=== PATIENT | female | born 1965 | race African-American/Black ===

== ENCOUNTER 2021-05-31 20:33 | Emergency (ER) | payer OTHER, SELFPAY ==
--- NOTE | ~2021-05-31 | XR_ITS ---
EXAMINATION: XR chest 1V portable EXAM DATE: 05/31/2021 21:22 INDICATION: Chest pain, COVID+, cough and shortness of breath. TECHNIQUE: Portable AP frontal chest x-ray was obtained. There is no prior study for comparison. FINDINGS: Moderate amount of patchy bilateral ill-defined airspace disease probably COVID pneumonia g iven history provided above. No pneumothorax or pleural effusion. Cardiomediastinal silhouette is nor mal. There are no osseous abnormalities identified. There are no osseous abnormalities identified. IMPRESSION: Moderate amount of airspace disease probably COVID pneumonia. Reviewed, dictated and finalized at location A.
[2021-05-31 20:39] VITALS: BP 164/78; PULSE 86; RESP 16; TEMP 36.8; O2SAT 96
--- NOTE | 2021-05-31 20:39 | ECG_ITS ---
Measurements Intervals [place] Rate: 80 P: 38 UT: 127 QRS: -6 QRSD: 98 T: 40 QT: 359 QTc: 415 Interpretive Statements SINUS RHYTHM POSSIBLE LEFT ATRIAL ENLARGEMENT DELAYED PRECORDIAL R/S TRANSITION BORDERLINE ECG Electronically Signed On 06-01-2021 6:30:11 CDT by David Carter D.O.
[2021-05-31 20:54] LABS: Basophils Percent Auto 0.2 % (0.2-1.2); Hemoglobin 14.2 g/dL (12.0-15.0); Immature Granulocyte Absolute 0.02 K/mm3 (0.00-0.031); Immature Granulocyte Percent A 0.4 % (0-0.5); Lymphocytes Absolute Auto 1.48 K/mm3 (0.9-3.2); Lymphocytes Percent Auto 30.8 % (18.3-44.2); Mean Corpuscular HGB Conc 31.6 g/dl (32-36); Mean Corpuscular Hemoglobin 27.8 pg (26-34); Mean Corpuscular Volume 88.2 fl (80-100); Mean Platelet Volume 10.6 fl (7.4-10.4); Monocytes Absolute Auto 0.3 K/mm3 (0.1-0.6); Neutrophils Percent Auto 62.6 % (45.5-73.1); Platelet Count Result 153 k/mm3 (150-375); Red Cell Distribution Width 12.9 % (11.5-14.5); White Blood Count 4.8 K/mm3 (4.5-10.0)
[2021-05-31 21:03] LABS: Anion Gap 10 mmol/L (8-16); Blood Urea Nitrogen 13 mg/dL (7-17); Calcium 9.2 mg/dL (8.4-10.2); Carbon Dioxide 26 mmol/L (22-30); Chloride 102 mmol/L (98-107); Estimated Glomerular Filt Rate 57; Glucose 115 mg/dL (65-105); Potassium 3.6 mmol/L (3.4-5.0); Sodium 138 mmol/L (137-145)
[2021-05-31 21:04] LABS: Prothrombin Time 13.3 Seconds (11.1-14.7)
[2021-05-31 21:06] LABS: Partial Thromboplastin Time 33.2 SECONDS (22.3-36.8)
[2021-05-31 21:15] LABS: Troponin I < 0.012 ng/mL (0.000-0.034)
[2021-05-31 23:11] VITALS: BP 140/86; PULSE 80; RESP 16; TEMP 36.4; O2SAT 99
[2021-06-01 01:10] VITALS: BP 118/90; PULSE 88; RESP 27; O2SAT 100
--- NOTE | 2021-06-01 01:20 | ED.GENADULT ---
HPI - General Adult General Chief complaint: Chest Pain Stated complaint: covid (+), chest pain Time Seen by Provider: 06/01/21 00:44 Source: patient and RN notes reviewed Mode of arrival: ambulatory Limitations: no limitations History of Present Illness HPI narrative: This is a 56 year old female who presents for evaluation of shortness of breath. She developed fever, headache, cough on Sunday. Today she was tested in [place] and she was told she was COVID positive. She went home and she did not feel right so she came to ER. She also reports she had nonradiating midsternal chest pain earlier but it resolved and has not return. She also reports intermittent sob and she is currently short of breath at work. She reports nausea but denies diarrhear or abdominal pain. She denies any medical problems. Related Data Allergies Allergy/AdvReac Type Severity Reaction Status Date / Time No Known Allergies Allergy Verified 06/01/21 01:17 Review of Systems Review of Systems: All systems reviewed & are unremarkable except as noted in HPI and below Constitutional: Constitutional: Denies chills and Denies fever(s) Cardiovascular: Cardiovascular: Reports chest pain, Denies rapid heart rate and Denies radiating jaw, neck or arm pain Respiratory: Respiratory: Reports chest congestion, Reports cough and Reports dyspnea Gastrointestinal: Gastrointestinal: Denies abdominal pain, Denies diarrhea, Reports nausea and Denies vomiting Neurologic: Reports weakness PMFSH Past Medical History Medical History (Updated 06/01/21 @ 03:22 by Nell Isabel MD) Patient denies medical problems Surgical History Surgical History (Updated 06/01/21 @ 01:25 by Nell Isabel MD) No pertinent past surgical history Social History Social History (Updated 06/01/21 @ 01:25 by Nell Isabel MD) Smoking status: Former smoker Gender identity (if verbalized by the patient): Female Exam Const: General: no acute distress and alert Orientation/consciousness: patient oriented x3 Eyes: EOM: EOMs intact bilaterally Chest: Chest palpation & inspection: normal inspection of the chest Resp: Effort & Inspection: normal respiratory effort, not labored, no retractions, not tachypneic and no use of accessory muscles Auscultation: rales GI: GI Palp: Yes Soft to palpation, No Tenderness to palpation present (GI) and No Guarding due to palpation present (GI) Auscultation: normal bowel sounds Skin: General skin exam: normal color Rashes: no rashes Neuro: General: patient oriented x3, moves all extremities and CN's II-XI intact bilaterally Extrem: General: no pedal edema Psych: Mental Status: mental status grossly normal Affect: normal affect Course Reevaluation(s) Reevaluation #1: PAtient reports she feels better. she denies nausea or shortness of breath. She is sleeping comfortable with oxygen saturation at 100% on room air. On arrival , I ambulated patient and she maintained oxygen saturion 95% on room air with ambulation . RR 20 currently . She is not tachypneic. She is agreeable to discharge home but she was given return precautions. Date: 06/01/21 Time: 03:19 Vital Signs Vital signs: Vital Signs Temperature 98.3 F 05/31/21 20:39 Pulse Rate 86 05/31/21 20:39 Respiratory Rate 16 05/31/21 20:39 Blood Pressure 164/78 H 05/31/21 20:39 Pulse Oximetry 96 05/31/21 20:39 Temperature 97.6 F 05/31/21 23:11 Pulse Rate 88 06/01/21 03:46 Respiratory Rate 28 H 06/01/21 03:46 Blood Pressure 142/76 H 06/01/21 03:46 Pulse Oximetry 94 06/01/21 03:46 Medical Decision Making Vital Signs Vital Signs: Vital Signs Temperature 98.3 F 05/31/21 20:39 Pulse Rate 86 05/31/21 20:39 Respiratory Rate 16 05/31/21 20:39 Blood Pressure 164/78 H 05/31/21 20:39 Pulse Oximetry 96 05/31/21 20:39 Temperature 97.6 F 05/31/21 23:11 Pulse Rate 88 06/01/21 03:46 Respir
[2021-06-01] MEDS: ALBUTEROL SULFATE (*SP) AEROSOL 1 PUFF 4 PUFF INHALATION (01:23)
[2021-06-01] MEDS: ONDANSETRON INJ 4 MG/2 ML VIAL IV PUSH (01:45)
[2021-06-01] MEDS: AZITHROMYCIN 250 MG TABLET 500 MG PO (01:48)
[2021-06-01 02:23] VITALS: BP 144/77; PULSE 88; RESP 29; O2SAT 97
[2021-06-01 02:29] LABS: Alanine Aminotransferase 53 U/L (4-35); Albumin Level 4.5 g/dL (3.5-5.1); Alkaline Phosphatase 76 U/L (38-126); Aspartate Amino Transferase 78 U/L (14-36); Bilirubin,Total 0.8 mg/dL (0.2-1.3)
[2021-06-01 02:40] LABS: Troponin I < 0.012 ng/mL (0.000-0.034)
[2021-06-01 03:46] VITALS: BP 142/76; PULSE 88; RESP 28; O2SAT 94
== END 2021-06-01 03:46 | disposition home or self-care (01) ==
PROVIDERS: Emergency Medicine; Emergency Provider General Practice; PCP Internal Medicine Gastroenterology
DX: U07.1 COVID-19 (principal); J12.82 Pneumonia due to coronavirus disease 2019
CPT/HCPCS: 36415; 71045; 80048; 80076; 84484; 85025; 85610; 85730; 93005; 96365; 96375; 99284; A9270; J0696; J2405